=== PATIENT | female | born 1975 | race Two or more races ===

== ENCOUNTER 2016-05-17 20:35 | Emergency (ER) | payer MEDICAID ==
[~2016-05-17] VITALS: Ht 162.6 cm; Wt 68.0 kg
[2016-05-17] MEDS ORDERED: OXYCODONE/APAP 5-325 MG TABLET PO ONE (21:15)
[2016-05-17] MEDS ORDERED: HYDROMORPHONE 1 MG/1 ML DISP.SYRIN IM ONE (21:15)
[2016-05-17] MEDS ORDERED: ONDANSETRON 4 MG/2 ML VIAL IM ONE (21:15)
[2016-05-17] MEDS ORDERED: HYDROMORPHONE 1 MG/1 ML DISP.SYRIN ONE (21:19)
[2016-05-17] MEDS ORDERED: ONDANSETRON 4 MG/2 ML VIAL ONE (21:19)
[2016-05-17] MEDS ORDERED: ONDANSETRON ODT 4 MG TAB.RAPDIS SL ONE ×2 (21:45→22:30)
[2016-05-17] MEDS ORDERED: ONDANSETRON ODT 4 MG TAB.RAPDIS ONE ×2 (21:53→22:22)
--- NOTE | 2016-05-17 22:30 | NUR ---
Patient discharged to home in stable conditon. Written and verbal after care instructions given. Patient verbalizes understanding of instructions.Ambulated from ER with stable gait. All belongings with patient.
[2016-05-17 22:33] VITALS: BP 131/78
== END 2016-05-17 22:33 | disposition home or self-care (01) ==
LOC: ER 20:36
DX: M54.17 Radiculopathy, lumbosacral region (principal); I10 Essential (primary) hypertension; E78.5 Hyperlipidemia, unspecified; E11.9 Type 2 diabetes mellitus without complications; F17.200 Nicotine dependence, unspecified, uncomplicated
CPT/HCPCS: A4663; J1170; J2405; Q0162

== ENCOUNTER 2019-04-08 10:29 | Emergency (ER) | payer MEDICAID ==
[~2019-04-08] VITALS: Ht 162.6 cm; Wt 76.7 kg
[2019-04-08] MEDS ORDERED: INSULIN SUBCUT (10:42)
[2019-04-08] MEDS ORDERED: ASPI81TA31 PO (10:42)
[2019-04-08] MEDS ORDERED: METF-442 PO (10:42)
[2019-04-08] MEDS ORDERED: GLIP5TAB13 PO (10:42)
--- NOTE | 2019-04-08 10:59 | NUR ---
Pt ambulated to ER with stable gait c/o SOB w/ ashtmatic episodes starting last night. Pt states shes been feeling sick from Saturday with cough , body aches and fever. Currently pt is afebrile. Speaks in clear, and complete sentences. No acute neuro deficit. A/O x4. Even and lobored breathing with wheezing upon excertion, unproductive cough, no use of accessory muscles. C/O chest pressure and pain while breathing. Denies any GI/ upset, no N/V. All pulses palpable , cap refil<3 sec.Skin is pink and dry. Patients bed is at lowest position, sr upx2,call light witin reach. Fall precautions implemented per protocol.
--- NOTE | 2019-04-08 11:17 | NUR ---
Dr Ya at the bedside for MSE.
[2019-04-08] MEDS ORDERED: predniSONE 20 MG TABLET PO ONE (11:30)
[2019-04-08] MEDS ORDERED: ALBUTEROL SULFATE 2.5 MG/3 ML NEBU NEB ONE (11:30)
[2019-04-08] MEDS ORDERED: AZITHROMYCIN 250 MG TABLET PO ONE (11:30)
[2019-04-08] MEDS ORDERED: ALBUTEROL SULFATE 2.5 MG/3 ML NEBU ONE (11:32)
[2019-04-08] MEDS ORDERED: AZITHROMYCIN 250 MG TABLET ONE (11:36)
[2019-04-08] MEDS ORDERED: predniSONE 20 MG TABLET ONE (11:36)
--- NOTE | 2019-04-08 11:50 | NUR ---
Patient discharged to home in stable conditon walking w/steady gait . Written and verbal after care instructions given. Patient verbalizes understanding of all instructions.
[2019-04-08 11:53] VITALS: BP 110/82
== END 2019-04-08 11:50 | disposition home or self-care (01) ==
LOC: ER 10:32
DX: J20.9 Acute bronchitis, unspecified (principal); J45.901 Unspecified asthma with (acute) exacerbation; I10 Essential (primary) hypertension; E11.8 Type 2 diabetes mellitus with unspecified complications; E78.5 Hyperlipidemia, unspecified; F17.200 Nicotine dependence, unspecified, uncomplicated; Z79.82 Long term (current) use of aspirin; Z79.899 Other long term (current) drug therapy
CPT/HCPCS: 94640; 99283; J7512; A4217; A4663; Q0144

== ENCOUNTER 2021-01-01 10:44 | Emergency (ER) | payer MEDICAID ==
[~2021-01-01] VITALS: Ht 162.6 cm; Wt 79.4 kg
[~2021-01-01 10:44] MED LIST: ASPI81TA31 PO; GLIP5TAB13 PO; INSULIN SUBCUT; METF-442 PO
[2021-01-01] MEDS ORDERED: predniSONE 20 MG TABLET PO ONE (12:15)
[2021-01-01] MEDS ORDERED: AZITHROMYCIN 250 MG TABLET PO ONE (12:15)
[2021-01-01] MEDS ORDERED: predniSONE 20 MG TABLET ONE (12:32)
[2021-01-01] MEDS ORDERED: AZITHROMYCIN 250 MG TABLET ONE (12:32)
[2021-01-01] MEDS ORDERED: PRED50TA PO (12:32)
[2021-01-01] MEDS ORDERED: GUAI5SYR4 GT ×2 (12:32→12:34)
[2021-01-01] MEDS ORDERED: ALBU18HF2 INH (12:32)
--- NOTE | 2021-01-01 12:51 | NUR ---
Pt denies any adverse event from medication.
[2021-01-01 13:45] VITALS: BP 110/70
== END 2021-01-01 14:00 | disposition home or self-care (01) ==
LOC: ER 10:45
DX: H66.91 Otitis media, unspecified, right ear (principal); J45.901 Unspecified asthma with (acute) exacerbation; E11.9 Type 2 diabetes mellitus without complications; I10 Essential (primary) hypertension; Z79.82 Long term (current) use of aspirin; Z79.84 Long term (current) use of oral hypoglycemic drugs
CPT/HCPCS: 99283; J7512; A4663; Q0144